=== PATIENT | female | born 1950 | race Two or more races ===

== ENCOUNTER 2016-10-21 10:15 | Emergency (ER) | payer MEDICAID ==
[~2016-10-21] VITALS: Ht 152.4 cm; Wt 50.8 kg
[~2016-10-21 10:15] MED LIST: ALBUTEROL SULF8.5 GM INH; AZITHROMYCIN250 MG ORAL; LEVAQUIN500 MG ORAL; LIPITOR20 MG ORAL; NKM; PREDNISONE20 MG ORAL
[2016-10-21 10:30] VITALS: BP 130/54
[2016-10-21] MEDS ORDERED: LR 1000ml 1,000 ML IV SCH (10:45)
[2016-10-21] MEDS ORDERED: FLUCONAZOLE100 MG ORAL (10:46)
--- NOTE | 2016-10-21 11:00 | Emergency Room Report ---
History of Present Illness General Chief Complaint: Generalized Weakness Source: Patient, Family Member Present Illness HPI 65 YOF with 4 days of weakness, lack of energy, decreased appetite, nausea. Denies assoc dizziness, unsteadiness on feet. ?History of anemia in past. Not on iron. Denies other med problems aside from psoriasis. Denies vaginal/rectal bleed, chest pain, SOB, fever/chills, abd pain, vomiting, diarrhea. recently had URI symptoms. Allergies: Coded Allergies: MORPHINE (Verified Adverse Reaction, Intermediate, GI UPSET, 10/27/12) Patient History Past Medical History: other - psoruasis Past Surgical History: none Pertinent Family History: none Social History: Denies: alcohol use, drug use, smoking Now: No Immunizations: UTD Reviewed Nursing Documentation: PMH: Agreed, PSxH: Agreed Nursing Documentation-PMH Past Medical History: No Stated History Review of Systems All Other Systems: negative except mentioned in HPI Physical Exam Vital Signs Date Time Temp Pulse Resp B/P Pulse Ox O2 Delivery O2 Flow Rate FiO2 10/21/16 10:21 98.4 107 20 130/64 95 Room Air Sp02 EP Interpretation: reviewed, abnormal General Appearance: normal inspection, well appearing, no apparent distress, alert, GCS 15, non-toxic Head: normocephalic, atraumatic Eyes: bilateral eye EOMI, bilateral eye PERRL ENT: normal ENT inspection, hearing grossly normal, normal pharynx, no angioedema, normal voice, TMs + canals normal, uvula midline, dry mucus membranes Neck: normal inspection, full range of motion, supple, no meningismus, no bony tend Respiratory: normal inspection, lungs clear, normal breath sounds, no respiratory distress, no retraction, no wheezing Cardiovascular #1: regular rate, rhythm, no edema Gastrointestinal: normal inspection, normal bowel sounds, non tender, soft, no guarding, no hernia Genitourinary: no CVA tenderness Musculoskeletal: normal inspection, back normal, normal range of motion, Gurpreet' s Sign negative Neurologic: normal inspection, alert, oriented x3, responsive, 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 No leuks. CXR and UA negative for infection ECG no ischemia. PACs on monitor Feels better after IVF hydration Wants to go home A Weakness, unknown cause. Possible dehydration Recommend PMD followup Zofran PRN nausea to improve appetite EKG Diagnostic Results Rate: normal, other - PACs Rhythm: NSR ST Segments: no acute changes ASA given to the pt in ED: No Rhythm Strip Diag. Results EP Interpretation: yes Rate: 64 Chest X-Ray Diagnostic Results EP Interpretation: Yes Findings: no consolidation, no effusion, no pneumothorax, no acute cardiopulmonary disease Number of Views: 1 Last Vital Signs Date Time Temp Pulse Resp B/P Pulse Ox O2 Delivery O2 Flow Rate FiO2 10/21/16 10:21 98.4 107 20 130/64 95 Room Air Status: improved Disposition: HOME, SELF-CARE MYA PRESCOTT M.D. Oct 21, 2016 11:00
[2016-10-21 11:11] LABS: EOSINOPHILS % (AUTO) 0.2 % (0.0-3.0); LYMPHOCYTES % (AUTO) 19.4 % (20.0-45.0); MEAN CORPUSCULAR HEMOGLOBIN 32.1 PG (27.0-31.0); MEAN CORPUSCULAR HGB CONC 34.7 G/DL (32.0-36.0); MEAN CORPUSCULAR VOLUME 92 FL (80-99); MEAN PLATELET VOLUME 11.5 FL (6.5-10.1); NEUTROPHILS % (AUTO) 65.5 % (45.0-75.0); PLATELET COUNT 128 K/UL (150-450); RED BLOOD COUNT 4.12 M/UL (4.20-5.40); RED CELL DISTRIBUTION WIDTH 10.5 % (11.6-14.8); WHITE BLOOD COUNT 8.4 K/UL (4.8-10.8)
[2016-10-21 11:12] LABS: APPEARANCE,URINE CLEAR; KETONES,URINE NEGATIVE (NEGATIVE); LEUKOCYTE ESTERASE ,URINE NEGATIVE (NEGATIVE); NITRITE,URINE NEGATIVE (NEGATIVE); PH,URINE 6.5 (4.5-8.0); PROTEIN,URINE NEGATIVE (NEGATIVE); UROBILINOGEN,URINE NORMAL MG/DL (0.0-1.0)
[2016-10-21 11:23] LABS: ALANINE AMINOTRANSFERASE 28 U/L (3-33); ALBUMIN/GLOBULIN RATIO 1.3 (1.0-2.7); ANION GAP 13 (5-15); ASPARTATE AMINO TRANSFERASE 31 U/L (5-40); CALCIUM 9.1 mg/dL (8.6-10.2); CARBON DIOXIDE 26 mEQ/L (20-30); CHLORIDE 92 mEQ/L (98-107); CREATININE 0.7 mg/dL (0.5-0.9); GLOMERULAR FILTRATION RATE > 60 mL/min (>60); HEMOLYSIS 0; POTASSIUM 4.2 mEQ/L (3.4-4.9); SODIUM 131 mEQ/L (135-145); TROPONIN I < 0.30 ng/mL (<=0.30)
[2016-10-21 11:33] LABS: CKMB < 1.5 ng/mL (< 3.8)
[2016-10-21 11:36] LABS: BACTERIA,URINE FEW /HPF; SQUAMOUS EPITHELIAL CELL,UR OCCASIONAL /LPF (NONE/OCC); WBC,URINE 0-2 /HPF (0 - 2)
[2016-10-21 12:00] VITALS: BP 149/59
[2016-10-21] MEDS ORDERED: ZOFRAN ODT4 MG ORAL (12:45)
[2016-10-21 13:50] VITALS: BP 127/45
--- NOTE | 2016-10-22 10:08 | Diagnostic Imaging Report ---
Indication: SOB Technique: One view of the chest Comparison: 08/20/2015 Findings: Interstitial opacities and bronchial wall thickening again demonstrated in the right upper lobe, presumably chronic. The lungs are mildly hyperinflated. There is evidence of pleural scarring at the lung apices. The lungs and pleural spaces are otherwise clear. The heart size is normal Impression: No definite acute process Chronic appearing interstitial opacities in the right upper lung with associated bronchial wall thickening COPD changes
--- NOTE | 2016-10-23 11:30 | Cardiology Report ---
APPROVED REPORT EKG Measurement Heart [id number] [place] [id number] Sinus rhythm with premature atrial complexes Otherwise normal ECG
== END 2016-10-21 13:50 | disposition home or self-care (01) ==
LOC: EMR 11:14
DX: R53.1 Weakness (principal); Z88.6 Allergy status to analgesic agent; R06.02 Shortness of breath; L40.9 Psoriasis, unspecified
CPT/HCPCS: 36415; 71010; 80053; 81003; 82550; 82553; 84484; 85025; 93005; 96360; 96361

== ENCOUNTER 2019-01-19 19:03 | Emergency (ER) | payer MEDICARE, MEDICAID ==
[~2019-01-19] VITALS: Ht 157.5 cm; Wt 49.9 kg
[~2019-01-19 19:03] MED LIST changes: +FLUCONAZOLE100 MG ORAL; +ZOFRAN ODT4 MG ORAL
--- NOTE | 2019-01-19 19:13 | NUR ---
ED Nurse Note: received report. Pt brought in from home, escorted to room in wheelchair, AAOx4, c/o n/v/d that started at 1600 today 01/19/19. Will assess and carry out ER MD's orders.
[2019-01-19] MEDS ORDERED: SINEMET 25-1001 EAC1 ORAL (19:14)
[2019-01-19] MEDS ORDERED: MIRTAZAPINE15 M3 ORAL (19:14)
[2019-01-19 19:22] VITALS: BP 142/59
--- NOTE | 2019-01-19 19:25 | NUR ---
ED Nurse Note: Pt's daughter explained pt has been feeling dizzy today when symptoms started and has not been able to walk because of it but has hx of Parkinson's. Pt's daughter also explained pt has vomitted about 5 times and had multpile episodes of diarrhea. Will continue to monitor.
[2019-01-19] MEDS ORDERED: Isovue-300 100ml vial INJ PRN (19:45)
--- NOTE | 2019-01-19 20:18 | Emergency Room Report ---
History of Present Illness General Chief Complaint: Nausea, Vomiting, and Diarrhea Source: Patient, Family Member Present Illness HPI Patient is a 68-year-old female who presented after increased abdominal discomfort and vomiting. Patient states that she has been having increased near syncope. She had onset of symptoms approximate 1 day prior to arrival. She reports having multiple episodes of nonbloody emesis. She denies any significant pain. She reports having some increased epigastric distention. She reports having multiple episodes of nausea and vomiting. She has prior history of Parkinson's disease.Patient had not been having any hematemesis. Allergies: Coded Allergies: MORPHINE (Verified Adverse Reaction, Intermediate, GI UPSET, 10/27/12) Patient History Past Medical History: see triage record Reviewed Nursing Documentation: PMH: Agreed; PSxH: Agreed Nursing Documentation-PMH Hx Neurological Problems: Yes - Parkinson's Review of Systems All Other Systems: negative except mentioned in HPI Physical Exam Vital Signs Date Time Temp Pulse Resp B/P (MAP) Pulse Ox O2 Delivery O2 Flow Rate FiO2 01/19/19 19:05 97.3 75 17 99 Room Air 01/19/19 19:22 142/59 Sp02 EP Interpretation: reviewed, normal General Appearance: normal inspection, alert, GCS 15, thin, Chronically Ill Head: atraumatic ENT: normal ENT inspection, hearing grossly normal, normal voice Neck: normal inspection, full range of motion, supple, no bony tend Respiratory: normal inspection, lungs clear, normal breath sounds, no respiratory distress, no retraction, no wheezing Cardiovascular #1: regular rate, rhythm, no edema Gastrointestinal: soft, no guarding, no hernia, tenderness - mild midepigastric Genitourinary: no CVA tenderness Musculoskeletal: normal inspection, back normal, normal range of motion Neurologic: normal inspection, alert, oriented x3, responsive, 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 Differential diagnosis included but was not limited to benign positional vertigo, labrynthitis, dehydration, gastroenteritis among others. Patient was noted to have dizziness with onset after visit to ENT. She was recently diagnosed with a TMJ arthritis and had nasal anesthetic prior to onset of dizziness. Patient was given IV fluids as well as nausea medication with improvement in symptoms. CT head showed chronic small vessel disease without acute CVA. Patient was offered admission for observation which she declined. Patient was advised to follow up with her physician for recheck in 1-2 days. She was advised to take ibuprofen. She is to return if worse. Laboratory Tests Test 01/19/19 20:12 White Blood Count 10.5 K/UL (4.8-10.8) Red Blood Count 4.16 M/UL (4.20-5.40) L Hemoglobin 12.9 G/DL (12.0-16.0) Hematocrit 36.0 % (37.0-47.0) L Mean Corpuscular Volume 87 FL (80-99) Mean Corpuscular Hemoglobin 30.9 PG (27.0-31.0) Mean Corpuscular Hemoglobin Concent 35.7 G/DL (32.0-36.0) Red Cell Distribution Width 10.6 % (11.6-14.8) L Platelet Count 192 K/UL (150-450) Mean Platelet Volume 8.2 FL (6.5-10.1) Neutrophils (%) (Auto) 67.2 % (45.0-75.0) Lymphocytes (%) (Auto) 24.0 % (20.0-45.0) Monocytes (%) (Auto) 5.6 % (1.0-10.0) Eosinophils (%) (Auto) 1.2 % (0.0-3.0) Basophils (%) (Auto) 1.9 % (0.0-2.0) Prothrombin Time 11.9 SEC (9.30-11.50) H Prothrombin Time INR 1.1 (0.9-1.1) PTT 28 SEC (23-33) Urine Color Pale yellow Urine Appearance Clear Urine pH 7 (4.5-8.0) Urine Specific [place] 1.010 (1.005-1.035) Urine Protein 1+ (NEGATIVE) H Urine Glucose (UA) Negative (NEGATIVE) Urine Ketones 2+ (NEGATIVE) H Urine Blood 1+ (NEGATIVE) H Urine Nitrite Negative (NEGATIVE) Urine Bilirubin Negative (NEGATIVE) Urine Urobilinogen Normal MG/DL (0.0-1.0) Urine Leukocyte Esterase 1+ (NEGATIVE) H Urine RBC 0-2 /HPF (0 - 2) Urine WBC 0-2 /HPF (0 - 2) Urine Squamous Epithelial Cells Occasional /LPF Urine Bacteria Occasional /HPF (NONE) Urine Mucus Few /LPF (NONE/OCC) H Sodium Level 135 MMOL/L (136-145) L Potassium Level 3.9 MMOL/L (3.5-5.1) Chloride Level 98 MMOL/L (98-107) Carbon Dioxide Level 26 MMOL/L (21-32) Anion Gap 11 mmol/L (5-15) Blood Urea Nitrogen 11 mg/dL (7-18) Creatinine 0.6 MG/DL (0.55-1.30) Estimate Glomerular Filtration Rate > 60 mL/min (>60) Glucose Level 113 MG/DL (74-106) H Calcium Level 9.3 MG/DL (8.5-10.1) Total Bilirubin 0.3 MG/DL (0.2-1.0) Aspartate Amino Transferase (AST) 21 U/L (15-37) Alanine Aminotransferase (ALT) 10 U/L (12-78) L Alkaline Phosphatase 55 U/L (46-116) Troponin I 0.000 ng/mL (0.000-0.056) Total Protein 7.3 G/DL (6.4-8.2) Albumin 4.2 G/DL (3.4-5.0) Globulin 3.1 g/dL Albumin/Globulin Ratio 1.4 (1.0-2.7) Lipase 177 U/L (73-393) EKG Diagnostic Results Rate: normal Rhythm: NSR ST Segments: no acute changes Last Vital Signs Date Time Temp Pulse Resp B/P (MAP) Pulse Ox O2 Delivery O2 Flow Rate FiO2 01/19/19 19:22 97.3 71 19 142/59 100 Room Air Status: improved Disposition: HOME, SELF-CARE Condition: Stable Scripts Meclizine Hcl* (MECLIZINE*) 25 Mg Tablet 25 MG ORAL THREE TIMES A DAY, #20 TAB Prov: Marc Rain MD 01/19/19 Ondansetron (Zofran) 4 Mg Tablet 4 MG ORAL Q6H PRN for Nausea & Vomiting, #30 TAB 0 Refills Prov: Marc Rain MD 01/19/19 Marc Rain MD Jan 19, 2019 20:18
[2019-01-19 20:28] LABS: BASOPHILS % (AUTO) 1.9 % (0.0-2.0); EOSINOPHILS % (AUTO) 1.2 % (0.0-3.0); HEMOGLOBIN 12.9 G/DL (12.0-16.0); MEAN CORPUSCULAR VOLUME 87 FL (80-99); MONOCYTES % (AUTO) 5.6 % (1.0-10.0); NEUTROPHILS % (AUTO) 67.2 % (45.0-75.0); PLATELET COUNT 192 K/UL (150-450); RED BLOOD COUNT 4.16 M/UL (4.20-5.40); RED CELL DISTRIBUTION WIDTH 10.6 % (11.6-14.8); WHITE BLOOD COUNT 10.5 K/UL (4.8-10.8)
[2019-01-19 20:30] VITALS: BP 136/59
[2019-01-19 20:31] LABS: APPEARANCE,URINE CLEAR; BILIRUBIN, URINE NEGATIVE (NEGATIVE); COLOR,URINE PALE YELLOW; GLUCOSE, URINE (UA) NEGATIVE (NEGATIVE); KETONES,URINE 2+ (NEGATIVE); LEUKOCYTE ESTERASE ,URINE 1+ (NEGATIVE); NITRITE,URINE NEGATIVE (NEGATIVE); PH,URINE 7 (4.5-8.0); PROTEIN,URINE 1+ (NEGATIVE); UROBILINOGEN,URINE NORMAL MG/DL (0.0-1.0)
[2019-01-19 20:46] LABS: INR 1.1 (0.9-1.1)
[2019-01-19 20:56] LABS: ANION GAP 11 mmol/L (5-15); BLOOD UREA NITROGEN 11 mg/dL (7-18); CALCIUM 9.3 MG/DL (8.5-10.1); CARBON DIOXIDE 26 MMOL/L (21-32); CHLORIDE 98 MMOL/L (98-107); CREATININE 0.6 MG/DL (0.55-1.30); POTASSIUM 3.9 MMOL/L (3.5-5.1); SODIUM 135 MMOL/L (136-145)
[2019-01-19 21:01] LABS: ALANINE AMINOTRANSFERASE 10 U/L (12-78); ALBUMIN 4.2 G/DL (3.4-5.0); ALBUMIN/GLOBULIN RATIO 1.4 (1.0-2.7); ALKALINE PHOSPHATASE 55 U/L (46-116); ASPARTATE AMINO TRANSFERASE 21 U/L (15-37); BILIRUBIN,TOTAL 0.3 MG/DL (0.2-1.0)
[2019-01-19] MEDS ORDERED: Meclizine 25mg tab ORAL ONE (21:15)
[2019-01-19 21:30] VITALS: BP 119/64
[2019-01-19] MEDS ORDERED: ZOFRAN4 MG ORAL (21:31)
[2019-01-19] MEDS ORDERED: MECLIZINE HCL25 MG ORAL (21:31)
[2019-01-19 21:55] VITALS: BP 119/64
--- NOTE | 2019-01-19 21:56 | NUR ---
ED Nurse Note: Pt cleared by health care Provider for discharge. DC instructions/prescription was given and explained to pt and verbalized understanding of teachings. All medical deviecs such as ID band and IV line removed. Pt is AAO x4, ambulatory and left with all personal belongings.
--- NOTE | 2019-01-20 11:17 | Diagnostic Imaging Report ---
Indications: Dizziness Technique: Spiral acquisitions obtained through the brain. Angled axial and coronal 5 x 5 mm slices were reconstructed. Total dose length product 1425.08 mGycm. CTDI vol(s) 70.38 mGy. Dose reduction achieved using automated exposure control Comparison: 12/10/2014 Findings: No acute intracranial hemorrhage or edema, mass effect, nor midline shift. Normal for age ventricles and extra-axial CSF spaces. Is minimal periventricular deep white matter low-attenuation There is some obscuration of the posterior fossa by streak artifact from dental amalgam. Normal simmons-white differentiation. There is evidence of prior bilateral cataract surgery. The mastoids are clear. Visualized orbits and sinuses are unremarkable. Intact calvarium Impression: Negative for acute intracranial bleed or mass effect Minimal periventricular chronic deep white matter ischemic changes This agrees with the preliminary interpretation provided overnight by [facility] service. The CT scanner at [facility] is accredited by the [employer] and the scans are performed using protocols designed to limit radiation exposure to as low as reasonably achievable to attain images of sufficient resolution adequate for diagnostic evaluation.
--- NOTE | 2019-01-20 11:50 | Diagnostic Imaging Report ---
Clinical Indication: Increased abdominal discomfort, pain, vomiting Technique: No oral contrast utilized, per emergency room physician request IV administration nonionic contrast. Venous phase spiral acquisition obtained through the abdomen and pelvis. Multiplanar reconstructions were generated. Total dose length product 419.16 mGycm. CTDIvol(s) 8.86 mGy. Dose reduction achieved using automated exposure control Comparison: none Findings: The appendix is not definitely identified, but no findings to suggest acute appendicitis are evident. There are prominent nodes in the pericecal region. The terminal ileum demonstrates some small bowel feces, indicating stasis of contents. No evidence of diverticulosis or diverticulitis. No small bowel distention. No free or loculated intraperitoneal gas or fluid. The distal esophagus, stomach, duodenum are unremarkable. The liver, gallbladder, bile ducts are unremarkable. The pancreas demonstrates some calcifications within the tail. The spleen demonstrates capsular calcifications. The adrenals, kidneys are all unremarkable. No retroperitoneal or mesenteric mass or adenopathy. No pelvic mass or adenopathy. The uterus is unremarkable, although somewhat prominent veins are seen surrounding it. The bones demonstrate very slight anterior wedging of the L2 vertebral body. The included lung bases are clear. There is a small pericardial effusion Impression: No definite acute process Prominent pericecal lymph nodes, nonspecific Small pericardial effusion Slight anterior wedging of the L2 vertebral body, probably physiologic. Mild compression fracture deformity not completely excludable. Correlate with clinical findings Splenic capsular calcifications, may indicate prior insult This agrees with the preliminary interpretation provided overnight by [facility], with minor variation. The CT scanner at [facility] is accredited by the [employer] and the scans are performed using protocols designed to limit radiation exposure to as low as reasonably achievable to attain images of sufficient resolution adequate for diagnostic evaluation.
== END 2019-01-19 21:56 | disposition home or self-care (01) ==
LOC: EMR 19:23
DX: R42 Dizziness and giddiness (principal); E86.0 Dehydration; G20 Parkinson's disease; Z88.6 Allergy status to analgesic agent; R11.2 Nausea with vomiting, unspecified
CPT/HCPCS: 36415; 70450; 74177; 80053; 81003; 83690; 84484; 85025; 85610; 85730; 96374; 96375; 99284; J2405; J7040; Q9967; S0028

== ENCOUNTER 2019-03-02 08:44 | Emergency (ER) | payer MEDICARE, MEDICAID ==
[~2019-03-02] VITALS: Ht 162.6 cm; Wt 49.9 kg
[~2019-03-02 08:44] MED LIST changes: +MECLIZINE HCL25 MG ORAL; +MIRTAZAPINE15 M3 ORAL; +SINEMET 25-1001 EAC1 ORAL; +ZOFRAN4 MG ORAL
--- NOTE | 2019-03-02 08:52 | NUR ---
ED Nurse Note: pt walked in due to sore throat started saturday, pt stated it feels like there is something stucked there but denies food intake that may cause it. pt able to speak but with horseness of voice. ermd on bedside. throat assessed and it was inflammed. will continue to monitor
[2019-03-02 09:09] VITALS: BP 154/68
[2019-03-02] MEDS ORDERED: Piperacillin/Tazobactam 3.375 GM in NS 110 ML IVPB ONE (09:15)
[2019-03-02] MEDS ORDERED: Dexamethasone 4mg/ml vial IVP ONE (09:15)
[2019-03-02] MEDS ORDERED: Isovue-370 150ml vial INJ PRN (09:15)
--- NOTE | 2019-03-02 09:15 | Emergency Room Report ---
History of Present Illness General Chief Complaint: Sore Throat Source: Patient, Medical Record Present Illness HPI Patient is a 68-year-old female who presented after increased sore throat and difficulty with swallowing. Patient reports having increased pain to the right side of her neck. She reports having difficulty with passing her saliva. Patient also recently noticed some swelling to the left sternoclavicular area. She denies any definite fever. She had been having some change in her voice. She denies taking aspirin. She reports having allergy to morphine.Patient denies any other locations of discomfort. She reports having some weight loss. She has prior history of Parkinson's disease. Allergies: Coded Allergies: MORPHINE (Verified Adverse Reaction, Intermediate, GI UPSET, 10/27/12) Patient History Past Medical History: see triage record Reviewed Nursing Documentation: PMH: Agreed; PSxH: Agreed Nursing Documentation-PMH Past Medical History: No History, Except For Hx Neurological Problems: Yes - Parkinson's Review of Systems All Other Systems: negative except mentioned in HPI Physical Exam Vital Signs Date Time Temp Pulse Resp B/P (MAP) Pulse Ox O2 Delivery O2 Flow Rate FiO2 03/02/19 08:52 98.2 101 18 154/68 (96) 97 Room Air Sp02 EP Interpretation: reviewed, normal General Appearance: normal inspection, alert, thin, Chronically Ill Head: atraumatic ENT: normal ENT inspection, hearing grossly normal, normal voice, other - voice hoarseness, left sided sternoclavicular swelling, right neck adenopathy Neck: normal inspection, supple, no bony tend, limited range of motion Respiratory: normal inspection, lungs clear, normal breath sounds, no respiratory distress, no retraction, no wheezing Cardiovascular #1: regular rate, rhythm, no edema Gastrointestinal: normal inspection, normal bowel sounds, non tender, soft, no guarding, no hernia Genitourinary: no CVA tenderness Musculoskeletal: normal inspection, back normal, normal range of motion Neurologic: normal inspection, alert, responsive, speech normal Psychiatric: normal inspection, judgement/insight normal, mood/affect normal Medical Decision Making Diagnostic Impression: Primary Impression: Tonsillar mass Additional Impression: Lymphadenopathy ER Course She presented for increased throat pain. Differential diagnosis include was not limited to abscess, tumor, cellulitis among others. Because of complexity of patient's case laboratory testing and imaging studies were ordered. CT imaging of the neck read by radiology showed multiple abnormal looking lymph nodes as well as area which appears to be a tumor-like lesion versus abscess. Patient was given IV Decadron as well as IV antibiotics. She was noted to have improvement in her swelling. Patient was noted to have improvement in her ability to handle secretions. ENT was contacted from [facility] who suggested the patient be followed as an outpatient as she is at now able to handle secretions. Patient was given prescriptions for oral steroids as well as medications for infection. She was advised to follow-up with ENT and to seek emergency care if she had worsening difficulty breathing or other concerns. Labs Test 03/02/19 09:28 White Blood Count 9.7 K/UL (4.8-10.8) Red Blood Count 4.44 M/UL (4.20-5.40) Hemoglobin 13.7 G/DL (12.0-16.0) Hematocrit 41.0 % (37.0-47.0) Mean Corpuscular Volume 92 FL (80-99) Mean Corpuscular Hemoglobin 30.9 PG (27.0-31.0) Mean Corpuscular Hemoglobin Concent 33.5 G/DL (32.0-36.0) Red Cell Distribution Width 11.1 % (11.6-14.8) Platelet Count 164 K/UL (150-450) Mean Platelet Volume 8.4 FL (6.5-10.1) Neutrophils (%) (Auto) 61.5 % (45.0-75.0) Lymphocytes (%) (Auto) 22.4 % (20.0-45.0) Monocytes (%) (Auto) 13.3 % (1.0-10.0) Eosinophils (%) (Auto) 1.1 % (0.0-3.0) Basophils (%) (Auto) 1.7 % (0.0-2.0) Prothrombin Time 11.3 SEC (9.30-11.50) Prothromb Time International Ratio 1.1 (0.9-1.1) Activated Partial Thromboplast Time 28 SEC (23-33) Sodium Level 134 MMOL/L (136-145) Potassium Level 3.8 MMOL/L (3.5-5.1) Chloride Level 99 MMOL/L (98-107) Carbon Dioxide Level 28 MMOL/L (21-32) Anion Gap 7 mmol/L (5-15) Blood Urea Nitrogen 8 mg/dL (7-18) Creatinine 0.7 MG/DL (0.55-1.30) Estimat Glomerular Filtration Rate > 60 mL/min (>60) Glucose Level 107 MG/DL (74-106) Calcium Level 9.3 MG/DL (8.5-10.1) Total Bilirubin 0.7 MG/DL (0.2-1.0) Aspartate Amino Transf (AST/SGOT) 22 U/L (15-37) Alanine Aminotransferase (ALT/SGPT) < 6 U/L (12-78) Alkaline Phosphatase 69 U/L (46-116) Total Protein 7.8 G/DL (6.4-8.2) Albumin 3.6 G/DL (3.4-5.0) Globulin 4.2 g/dL Albumin/Globulin Ratio 0.9 (1.0-2.7) Last Vital Signs Date Time Temp Pulse Resp B/P (MAP) Pulse Ox O2 Delivery O2 Flow Rate FiO2 03/02/19 09:09 98.2 101 18 154/68 97 Room Air Status: improved Disposition: HOME, SELF-CARE Condition: Stable Scripts Amoxicillin/Potassium Clav Es-600 Suspension (AUGMENTIN ES-600 SUSPENSION) 600 Mg/5 Ml Susp.recon 600 MG ORAL EVERY 12 HOURS for 10 Days, #100 ML Take with food & water Prov: Marc Rain MD 03/02/19 Dexamethasone (Decadron) 4 Mg Tablet 8 MG PO QOD, #2 TAB Prov: Marc Rain MD 03/02/19 Marc Rain MD Mar 02, 2019 09:15
[2019-03-02 09:52] LABS: BASOPHILS % (AUTO) 1.7 % (0.0-2.0); EOSINOPHILS % (AUTO) 1.1 % (0.0-3.0); HEMOGLOBIN 13.7 G/DL (12.0-16.0); LYMPHOCYTES % (AUTO) 22.4 % (20.0-45.0); MEAN CORPUSCULAR VOLUME 92 FL (80-99); MONOCYTES % (AUTO) 13.3 % (1.0-10.0); NEUTROPHILS % (AUTO) 61.5 % (45.0-75.0); PLATELET COUNT 164 K/UL (150-450); RED BLOOD COUNT 4.44 M/UL (4.20-5.40); RED CELL DISTRIBUTION WIDTH 11.1 % (11.6-14.8); WHITE BLOOD COUNT 9.7 K/UL (4.8-10.8)
[2019-03-02 09:57] LABS: INR 1.1 (0.9-1.1)
[2019-03-02 09:58] LABS: ANION GAP 7 mmol/L (5-15); BLOOD UREA NITROGEN 8 mg/dL (7-18); CALCIUM 9.3 MG/DL (8.5-10.1); CARBON DIOXIDE 28 MMOL/L (21-32); CHLORIDE 99 MMOL/L (98-107); CREATININE 0.7 MG/DL (0.55-1.30); POTASSIUM 3.8 MMOL/L (3.5-5.1); SODIUM 134 MMOL/L (136-145)
[2019-03-02 10:02] LABS: ALANINE AMINOTRANSFERASE < 6 U/L (12-78); ALBUMIN 3.6 G/DL (3.4-5.0); ALBUMIN/GLOBULIN RATIO 0.9 (1.0-2.7); ALKALINE PHOSPHATASE 69 U/L (46-116); ASPARTATE AMINO TRANSFERASE 22 U/L (15-37); BILIRUBIN,TOTAL 0.7 MG/DL (0.2-1.0)
--- NOTE | 2019-03-02 10:30 | NUR ---
ED Nurse Note: pt went to ct with tech
--- NOTE | 2019-03-02 10:40 | NUR ---
ED Nurse Note: pt went back from ct
--- NOTE | 2019-03-02 10:55 | NUR ---
ED Nurse Note: pt went to restroom and able to provide urine sample. pt has no complaint at the moment. will continue to monitor.
--- NOTE | 2019-03-02 11:43 | Diagnostic Imaging Report ---
Indication: Sore throat and difficulty with swallowing, increased pain is right side of her neck. Left sternoclavicular area swelling Technique: IV administration nonionic contrast. Arterial phase 5 acquisitions obtained through the neck. Multiplanar sand 3-D reconstructions were generated. Total dose length product 1828 mGycm. CTDIvol(s) 16, 165, 51 mGy. Radiation dose was minimized using automated exposure control Comparison: none Findings: Normal-appearing upper aortic arch. Classic branching anatomy of the great neck vessels. Patent and nonstenotic right brachiocephalic artery. Patent nonstenotic right common carotid artery. Patent and nonstenotic right internal carotid artery. There is some calcified as are sclerotic plaque in the carotid siphon which does not appear to be hemodynamically significant. Patent nonstenotic right proximal subclavian artery. Patent nonstenotic left proximal subclavian artery. Codominant bilateral vertebral arteries, which are patent without significant stenosis demonstrated. Patent nonstenotic left common carotid and internal carotid artery. There is some atherosclerotic plaquing of the carotid siphon which does not appear to be hemodynamically significant. The included proximal intracranial vessels appear to be patent without significant stenosis. There appears to be a dominant right PICA. There is marked enlargement of the right tonsillar pillar. There are multiple areas of low attenuation within the area of enlargement. This deviates the oropharynx and hypopharynx to the left. This abnormality extends well into the hypopharynx. The left tonsillar pillar is also somewhat prominent but much less so than the contralateral side.. There is confluent cervical adenopathy in the right side of neck, with largest node measuring at least 3.5 cm long axis dimension and demonstrating suggestion of slight central low attenuation. Prominent but less frankly enlarged nodes are also seen on the right. Per Dr. Rain in the emergency room, there is also palpable abnormality superior to the left sternoclavicular joint. There is questionably some slightly prominent tissue medial to the medial clavicle adjacent to the sternal notch. There is also a possible enlarged node just cephalad to the medial clavicular head measuring 14 mm diameter. However, this area is poorly demonstrated as it is obscured by streak artifact from the adjacent contrast filled vein The included lung apices demonstrate fairly extensive parenchymal scarring or consolidation in the bilateral lung apices. There is a possible 9 mm cavitary lesion in the periphery of the left upper lobe and a 7 mm subpleural nodule in the periphery of the left upper lobe. There requires to be some consolidation and/or scarring in the superior segment of the right lower lobe. There is a calcified subpleural nodule in the anterolateral left upper lobe. The thyroid is unremarkable. The bones demonstrate degenerative spondylosis changes of the cervical spine. The sinuses are clear. The visualized intracranial structures are unremarkable. Impression: Marked abnormality of the right tonsillar pillar. This could indicate neoplasm or infection. Areas of low attenuation could indicate areas of necrotic tumor versus small abscesses. Correlation with clinical findings is recommended. Right-sided cervical lymphadenopathy. There is suggestion of at least one partially necrotic node which is concerning for involvement with necrotic tumor. Reactive adenopathy also possible shouldn't the tonsillar findings. Inflammatory in nature Ill-defined and questionable soft tissue abnormalities medial to and superior to the medial left clavicle, poorly demonstrated due to streak artifact from adjacent contrast filled veins. If real could correspond to the reported palpable abnormality and could represent adenopathy No evidence of extracranial cerebrovascular insufficiency Extensive pulmonary parenchymal disease. Acuity indeterminate the suspect predominantly on the basis of scarring. Consider further evaluation with dedicated chest CT Incidental finding of degenerative spondylosis Findings discussed by phone with Dr. Rain in the emergency room at the time of interpretation The CT scanner at [facility] is accredited by the [employer] and the scans are performed using protocols designed to limit radiation exposure to as low as reasonably achievable to attain images of sufficient resolution adequate for diagnostic evaluation.
[2019-03-02 12:00] VITALS: BP 138/68
[2019-03-02] MEDS ORDERED: DECADRON4 MG PO (15:08)
[2019-03-02] MEDS ORDERED: AUGMENTIN600 MG/5 M ORAL (15:08)
[2019-03-02 16:05] VITALS: BP 130/68
--- NOTE | 2019-03-02 16:05 | NUR ---
ER DISCHARGE NOTE: Patient is cleared to be discharged per ERMD, pt is aox4, on room air, with stable vital signs. pt was given dc and prescription instructions, pt was able to verbalize understanding, pt id band and iv site removed without complications. pt is able to ambulate with steady gait. pt took all belongings.
== END 2019-03-02 16:05 | disposition home or self-care (01) ==
LOC: EMR 09:29
DX: R59.1 Generalized enlarged lymph nodes (principal); R22.9 Localized swelling, mass and lump, unspecified; Z88.6 Allergy status to analgesic agent; G20 Parkinson's disease
CPT/HCPCS: 36415; 70498; 80053; 85025; 85610; 85730; 86850; 86900; 86901; 93005; 96365; 96375; 99284; J1100; J2543; Q9967